=== PATIENT | female | born 1960 | race Caucasian/White ===

== ENCOUNTER 2024-02-01 10:04 | Emergency (ER) | payer MEDICAID ==
[~2024-02-01] VITALS: Ht 185.4 cm; Wt 44.4 kg
[2024-02-01 10:14] VITALS: TEMP 100.2
[2024-02-01 11:06] LABS: BILIRUBIN,URINE NEGATIVE (Neg); CLARITY,URINE CLEAR (Clear); COLOR,URINE YELLOW (Yellow); GLUCOSE, URINE NEGATIVE (Neg); KETONES,URINE NEGATIVE (Neg); LEUKOCYTE ESTERASE ,URINE NEGATIVE (Neg); NITRITES, URINE NEGATIVE (Neg); OCCULT BLOOD,URINE NEGATIVE (Neg); PROTEIN,URINE NEGATIVE (Neg); UROBILINOGEN,URINE 0.2 E.U/dL (0.2-1.0)
[2024-02-01 11:09] LABS: UA COLLECTION TYPE CLN CATCH MIDSTREAM
[2024-02-01 11:48] VITALS: BP 96/65; PULSE 71; RESP 16; O2SAT 100
== END 2024-02-01 11:50 | disposition home or self-care (01) ==
LOC: ER 10:05
DX: R10.84 Generalized abdominal pain (principal); R31.9 Hematuria, unspecified; R30.0 Dysuria
CPT/HCPCS: 81003; 99283